=== PATIENT | female | born 1970 | race Caucasian/White ===

== ENCOUNTER 2022-02-07 19:19 | Emergency (ER) | payer OTHER ==
[~2022-02-07 19:19] MED LIST: IBUPROFEN400 MG PO
== END 2022-02-08 01:53 | disposition home or self-care (01) ==
LOC: ER1 19:19
DX: S63.502A Unspecified sprain of left wrist, initial encounter (principal); W01.0XXA Fall on same level from slipping, tripping and stumbling without subsequent striking against object, initial encounter; Y92.009 Unspecified place in unspecified non-institutional (private) residence as the place of occurrence of the external cause
CPT/HCPCS: 73110; 99283